=== PATIENT | male | born 1930 | race Asian ===

== ENCOUNTER 2020-05-10 05:09 | Emergency (ER) | payer MEDICARE, MEDICAID ==
[~2020-05-10] VITALS: Ht 170.2 cm; Wt 59.0 kg
[~2020-05-10 05:09] MED LIST: ALBUTEROL SULF8.5 GM INH; UNOBMED; ZITHROMAX250 MG ORAL
--- NOTE | 2020-05-10 05:15 | NUR ---
ED Nurse Note: Patient brought in by ambulance BRISSA RA [address] [facility] with c/o of SOB. Per EMS and facility staff pt was 77% on room air. Patient came in with NRB at 15L and per EMS o2 sat is 97%. Patient was gasping and unresponsive and HR of 150's when brought. Patient was tested for covid per facility. Patient on DNR status.
--- NOTE | 2020-05-10 05:22 | Emergency Room Report ---
History of Present Illness General Chief Complaint: Dyspnea/Respdistress Source: Medical Record, EMS Present Illness HPI This is an 89-year-old Sami male, retirement patient, with multiple medical problems including pneumonia, diabetes, dementia. He also is tube feeding and is a DNR with comfort care only. He presents with complaint of shortness of breath. Onset for last couple days per retirement note. No reported fever. Decreased mentation. No reported vomiting or diarrhea. History is limited on this patient because of his condition. History is through retirement note. 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 COVID-19 Screening: Negative COVID-19 COVID-19 Testing Source: unk Patient History Past Medical History: see triage record, old chart reviewed, DM Past Surgical History: other - tube feeding Pertinent Family History: none Social History: Denies: smoking Immunizations: other Reviewed Nursing Documentation: PMH: Agreed; PSxH: Agreed Nursing Documentation-PMH Hx Cardiac Problems: Yes Hx Hypertension: Yes Hx Cancer: No Hx Gastrointestinal Problems: No Hx Neurological Problems: No Review of Systems Constitutional: Reports: malaise, weakness Respiratory: Reports: cough, shortness of breath All Other Systems: limited - Secondary to condition Physical Exam Vital Signs Date Time Temp Pulse Resp B/P (MAP) Pulse Ox O2 Delivery O2 Flow Rate FiO2 05/10/20 05:10 97.3 120 20 71/48 (56) 100 Non-Rebreather Sp02 EP Interpretation: abnormal General Appearance: severe distress, Stupor - unresponsive Head: normocephalic, atraumatic Eyes: bilateral eye PERRL, bilateral eye EOMI ENT: dry mucus membranes Neck: full range of motion, supple, no meningismus Respiratory: chest non-tender, respiratory distress, decreased breath sounds, accessory muscle use Cardiovascular #1: regular rate, rhythm, no murmur, tachycardia Gastrointestinal: normal bowel sounds, non tender, no mass, no organomegaly, no bruit, non-distended Musculoskeletal: no lower extremity edema Neurologic: other - no response to painful stimuli Psychiatric: no delusions Skin: no rash Lymphatic: normal inspection Medical Decision Making Diagnostic Impression: Primary Impression: Cardiac arrest Additional Impression: Respiratory failure with hypoxia Qualified Codes: J96.01 - Acute respiratory failure with hypoxia ER Course This patient came in respiratory distress with tachycardia. He was tachycardic to the 150s. As a nurse was getting a line he became asystolic and apneic. After confirming that there is no heartbeat and he is not breathing, I pronounced him at 5:45 AM. Primary care doctor contacted. EKG Diagnostic Results Rate: tachycardiac Rhythm: NSR ST Segments: other - ST depression diffusely Rhythm Strip Diag. Results EP Interpretation: yes Rate: 150 Rhythm: NSR, no PVC's, no ectopy Last Vital Signs Date Time Temp Pulse Resp B/P (MAP) Pulse Ox O2 Delivery O2 Flow Rate FiO2 05/10/20 05:10 97.3 120 20 71/48 (56) 100 Non-Rebreather Status: worsened Disposition: Condition: Moncho Barrett MD May 10, 2020 05:22
[2020-05-10 05:30] VITALS: BP 71/48
[2020-05-10] MEDS ORDERED: LISINOPRIL40 MG ORAL (05:31)
[2020-05-10] MEDS ORDERED: JANUVIA25 MG GT (05:31)
[2020-05-10] MEDS ORDERED: METOLAZONE5 MG GT (05:31)
[2020-05-10] MEDS ORDERED: DOCUSATE SODIU100 MG GT (05:31)
[2020-05-10] MEDS ORDERED: FLOMAX0.4 MG GT (05:31)
[2020-05-10] MEDS ORDERED: NITRO0.4 SL (05:31)
[2020-05-10] MEDS ORDERED: NEXIUM40 MG GT (05:31)
[2020-05-10] MEDS ORDERED: METOPROLOL TART25 MG GT (05:31)
[2020-05-10] MEDS ORDERED: ASPIRIN81 MG GT (05:31)
[2020-05-10] MEDS ORDERED: LIPITOR40 MG GT (05:31)
[2020-05-10] MEDS ORDERED: NORVASC10 MG ORAL (05:31)
[2020-05-10] MEDS ORDERED: CELEBREX100 MG ORAL (05:31)
[2020-05-10] MEDS ORDERED: POTASSIUM CHLO20 ME2 GT (05:31)
--- NOTE | 2020-05-10 05:38 | NUR ---
ED Nurse Note: Patient continiously placed on NRB at 15lpm and was on ekg monitor. IV line established at right thumb. Patient still gasping at 10bpm, HR at 140's.
--- NOTE | 2020-05-10 05:43 | NUR ---
ED Nurse Note: Respiration is at 5bpm, HR at 20bpm. ERMD notified
[2020-05-10 05:45] VITALS: BP 0/0
--- NOTE | 2020-05-10 05:45 | NUR ---
ED Nurse Note: Patient is asystole. On DNR status. Pronounced by ANTIONETTE.
--- NOTE | 2020-05-10 05:50 | NUR ---
ED Nurse Note: PER ANTIONETTE, ATTEMPTED TO CALL DR TOBIAS BUT NO ANSWER. LEFT VOICEMAIL. ANTIONETTE MADE AWARE.
--- NOTE | 2020-05-10 05:50 | NUR ---
ED Nurse Note: Post mortem done and rendered. Patients next of kin notified of patient's status.
--- NOTE | 2020-05-10 05:55 | NUR ---
ED Nurse Note: PER ANTIONETTE, CALLED NEXT OF KIN (SON) FOR PATIENT'S STATUS. SON: KYRA PATHAK SIK [phone]
--- NOTE | 2020-05-10 06:20 | NUR ---
ED Nurse Note: next of kin contacted for visitation.
--- NOTE | 2020-05-10 06:48 | NUR ---
ED Nurse Note: Spoke with Gino from [facility], notifying that patient is positive for covid and has .
== END 2020-05-10 08:15 | disposition expired ==
LOC: EDBD 05:09 → EMR 05:25
DX: U07.1 COVID-19 (principal); I46.9 Cardiac arrest, cause unspecified; J96.01 Acute respiratory failure with hypoxia; E11.9 Type 2 diabetes mellitus without complications; R06.02 Shortness of breath; F03.90 Unspecified dementia, unspecified severity, without behavioral disturbance, psychotic disturbance, mood disturbance, and anxiety; I10 Essential (primary) hypertension; R05 Cough; R00.0 Tachycardia, unspecified; J18.9 Pneumonia, unspecified organism; J80 Acute respiratory distress syndrome
CPT/HCPCS: 93005; 96360; 99284; U0002